=== PATIENT | female | born 2000 | race Caucasian/White ===

== ENCOUNTER 2023-09-12 11:37 | Emergency (ER) | payer OTHER ==
[2023-09-12 12:02] LABS: BILIRUBIN,URINE NEGATIVE (NEGATIVE); CLARITY,URINE CLEAR (CLEAR); GLUCOSE, URINE (UA) NEGATIVE (NEGATIVE); HCG UR QUAL POSITIVE; KETONES,URINE (UA) NEGATIVE (NEGATIVE); LEUKOCYTE ESTERASE, URINE TRACE (NEGATIVE); NITRITE,URINE NEGATIVE (NEGATIVE); OCCULT BLOOD,URINE LARGE (NEGATIVE); PROTEIN,URINE NEGATIVE (NEGATIVE); UROBILINOGEN,URINE 0.2 (NORMAL) E.U./dL (NORMAL)
[2023-09-12 12:07] LABS: BACTERIA,URINE Few /HPF (None Seen); MUCUS,URINE Moderate Strands; RBC,URINE 0-5 /HPF (0-5); SQUAMOUS EPITHELIAL CELL,UR MANY Squamous (<= Few); WBC,URINE 0-3 /HPF (0-5)
[2023-09-12 12:10] LABS: BASOPHILS % (AUTO) 0.2 %; EOSINOPHILS # (AUTO) 0.1 10^3/uL (0.0-0.7); EOSINOPHILS % (AUTO) 1.7 %; HCT - HEMATOCRIT 36.8 % (37.0-47.0); HGB - HEMOGLOBIN 12.2 g/dL (12.0-16.0); LYMPHOCYTES # (AUTO) 1.7 10^3/uL (1.5-3.5); LYMPHOCYTES % (AUTO) 27.7 %; MEAN CORPUSCULAR HEMOGLOBIN 29.9 pg (27.0-31.0); MEAN CORPUSCULAR HGB CONC 33.2 g/dL (32.0-36.0); MEAN CORPUSCULAR VOLUME 90.2 fL (81.0-99.0); MEAN PLATELET VOLUME 8.6 fL (7.9-10.8); MONOCYTES # (AUTO) 0.5 10^3/uL (0.0-1.0); MONOCYTES % (AUTO) 8.7 %; NEUTROPHILS # (AUTO) 3.7 10^3/uL (1.5-6.6); NEUTROPHILS % (AUTO) 61.5 %; PLT - PLATELET COUNT 226 10^3/uL (130-450); RED BLOOD COUNT 4.08 10^6/uL (4.20-5.40); RED CELL DISTRIBUTION WIDTH 12.8 % (12.0-15.0)
[2023-09-12 12:24] LABS: ALBUMIN 4.2 g/dL (3.2-5.5); ALBUMIN/GLOBULIN RATIO 1.8 (1.0-2.2); BILIRUBIN,TOTAL 0.5 mg/dL (0.2-1.0); CALCIUM 8.9 mg/dL (8.5-10.3); CREATININE 0.8 mg/dL (0.6-1.3); POTASSIUM 3.7 mmol/L (3.5-4.5); TOTAL PROTEIN 6.5 g/dL (6.4-8.9)
--- NOTE | 2023-09-12 12:33 | ED Physician Documentation ---
PD HPI FEMALE - Stated complaint Stated Complaint: /ABD PX - Chief complaint Chief Complaint: Abd Pain - History obtained from History obtained from: Patient - History of Present Illness Timing - onset: How many weeks ago (last menses end Jul and had positive preg test end Aug when was slightly late for period. Had some vaginal bleeding for couple of days then improved with some cramping intermittent. Onset of some vaginal bleeding again last evening after intercourse.) Timing - duration: Weeks (1) Timing - details: Waxing and waning Associated symptoms: Pelvic pain, Vaginal bleeding. No: Fever, Vaginal discharge, Dysuria Contributing factors: OB-BIOMEDICAL INSTRUMENT TECHNICIAN History: G, P Similar symptoms before: Has not had sx before Recently seen: Not recently seen Review of Systems Constitutional: denies: Fever, Chills GI: reports: Abdominal Pain (some cramping lower mid abd to left lower pelvis.) : reports: LMP (end Jul (about 6 1/2 weeks ago).). denies: Dysuria, Frequency, Discharge Musculoskeletal: reports: Back pain (some cramping low back pain at times) Neurologic: denies: Near syncope PD PAST MEDICAL HISTORY - Past Medical History Past Medical History: Yes Cardiovascular: None Respiratory: None Neuro: None Endocrine/Autoimmune: None, Type 2 diabetes BIOMEDICAL INSTRUMENT TECHNICIAN: None : None HEENT: None Psych: None Musculoskeletal: None Derm: None - Past Surgical History Past Surgical History: No - Present Medications Home Medications: Ambulatory Orders Medication Instructions Recorded Confirmed Sertraline HCl 100 mg PO DAILY 09/12/23 09/12/23 - Allergies Allergies/Adverse Reactions: Allergies Allergy/AdvReac Type Severity Reaction Status Date / Time No Known Drug Allergies Allergy Verified 09/12/23 11:41 - Social History Does the pt smoke?: No Smoking Status: Never smoker Does the pt drink ETOH?: No Does the pt have substance abuse?: No - Immunizations Immunizations are current?: Yes - POLST Patient has POLST: No PD ED PE NORMAL - Vitals Vital signs reviewed: Yes - General General: Alert and oriented X 3, Well developed/nourished - Cardiac Cardiac: RRR, No murmur - Female Female : Deferred - Derm Derm: Normal color, Warm and dry Results - Vitals Vitals: Vital Signs - 24 hr 09/12/23 09/12/23 09/12/23 11:41 13:43 15:12 Temperature 36.8 C Heart Rate 82 64 71 Respiratory 16 16 16 Rate Blood Pressure 149/80 H 120/75 113/74 O2 Saturation 100 100 100 09/12/23 15:14 Temperature 36.8 C Heart Rate 68 Respiratory 16 Rate Blood Pressure 113/74 O2 Saturation 98 Oxygen O2 Source Room air - Labs Labs: Laboratory Tests 09/12/23 09/12/23 09/12/23 11:58 12:07 12:07 WBC 6.0 RBC 4.08 L Hgb 12.2 Hct 36.8 L MCV 90.2 MCH 29.9 MCHC 33.2 RDW 12.8 Plt Count 226 MPV 8.6 Neut # (Auto) 3.7 Lymph # (Auto) 1.7 [place] # (Auto) 0.5 Eos # (Auto) 0.1 Baso # (Auto) 0.0 Absolute Nucleated RBC 0.00 Nucleated RBC % 0.0 Sodium 137 Potassium 3.7 Chloride 108 Carbon Dioxide 25 Anion Gap 4.0 L BUN 16 Creatinine 0.8 Estimated GFR (MDRD) 91 Glucose 91 Calcium 8.9 Total Bilirubin 0.5 AST 11 ALT 9 L Alkaline Phosphatase 36 L Total Protein 6.5 Albumin 4.2 Globulin 2.3 Albumin/Globulin Ratio 1.8 Lipase 12 Beta HCG, Quant Urine Color YELLOW Urine Clarity CLEAR Urine pH 6.0 Ur Specific [place] >=1.030 H Urine Protein NEGATIVE Urine Glucose (UA) NEGATIVE Urine Ketones NEGATIVE Urine Occult Blood LARGE H Urine Nitrite NEGATIVE Urine Bilirubin NEGATIVE Urine Urobilinogen 0.2 (NORMAL) Ur Leukocyte Esterase TRACE H Urine RBC 0-5 Urine WBC 0-3 Ur Squamous Epith Cells MANY Squamous H Urine Bacteria Few Urine Mucus Moderate Strands Ur Microscopic Review INDICATED Urine Culture Comments NOT INDICATED Urine HCG, Qual POSITIVE Blood Type 09/12/23 09/12/23 12:07 12:07 WBC RBC Hgb Hct MCV MCH MCHC RDW Plt Count MPV Neut # (Auto) Lymph # (Auto) [place] # (Auto) Eos # (Auto) Baso # (Auto) Absolute Nucleated RBC Nucleated RBC % Sodium Potassium Chloride Carbon Dioxide Anion Gap BUN Creatinine Estimated GFR (MDRD) Glucose Calcium Total Bilirubin AST ALT Alkaline Phosphatase Total Protein Albumin Globulin Albumin/Globulin Ratio Lipase Beta HCG, Quant 1816.9 Urine Color Urine Clarity Urine pH Ur Specific [place] Urine Protein Urine Glucose (UA) Urine Ketones Urine Occult Blood Urine Nitrite Urine Bilirubin Urine Urobilinogen Ur Leukocyte Esterase Urine RBC Urine WBC Ur Squamous Epith Cells Urine Bacteria Urine Mucus Ur Microscopic Review Urine Culture Comments Urine HCG, Qual Blood Type AB NEGATIVE - Rads (name of study) OB US Relevant Findings:: Prelim report reviewed (no visualized IUP; differential includes early , missed miscarriage, or nonvisualized ectopic. Ovaries appear normal and no pelvic free fluid. ), Other (US tech) PD Medical Decision Making - ED course Complexity details: reviewed results, considered differential (early with some left pelvic pain and vaginal bleeding. Consider early with bleeding, Miscarriage, extopic. ), d/w patient, d/w sediment remediation consultant (Dr. Mccain, federal mediation commissioner [employer] MOLDER, who will have office follow up with pt to set appt for lab/exam. ) Reviewed Lab Results: Normal Hgb and WBC. Has positive HCG test on UA. Quant HCG 1816. Blood type AB negative, so if does determine to be miscarriage, will need to consider Rhogam. Will need repeat HCG quant in 3 days to see if rising or falling. If rising, then repeat US at about a week or sooner eval for concern of ectopic. If falling HCG, could be c/w miscarriage. Departure - Departure Disposition: 01 Home, Self Care Clinical Impression: Vaginal bleeding affecting early Condition: Stable Record reviewed to determine appropriate education?: Yes Instructions: ED Miscarriage Poss Follow-Up: Echo Mccain MD [Provider Admit Priv/Credential] - [facility] [Provider Group] Comments: Your ultrasound did not show an obvious in the uterus and no obvious abnormalities in the ovaries or pelvis. Your quantitative hCG level today was 1819. This does not really give us enough specific information to know whether there was a miscarriage and the number is still falling or whether there is a continued that was not visible on ultrasound. You will want to have a repeat blood test in about 3 days to see if the quantitative hCG is going up or down and that will give better information. If it is rising, then further investigation with repeat out such sound in the near future to establish the site of the . If the number is falling appropriately then likely was a miscarriage completed. I did talk with our wood coater on-call and they can follow-up with you. [facility] and see if they are able to just order the repeat blood test in several days to better assess. Meanwhile Tylenol or ibuprofen if needed for some pains or cramps. Return to the ER if you have significant increase in pain, fevers, vaginal discharge or significant bleeding or other concerns. Forms: PCP List Discharge Date/Time: 09/12/23 15:14
[2023-09-12 15:18] VITALS: BP 113/74; O2SAT 98
--- NOTE | 2023-09-12 16:12 | Ultrasound Report ---
PROCEDURE: OB 1st Trimester w/TV INDICATIONS: vag bleeding; EGA 6 wks OUTSIDE/PRIOR DATING DATA: Last menstrual period (LMP): 07/31/2023. TECHNIQUE: Real-time scanning was performed of the fetus and maternal pelvic organs, with image documentation. Endovaginal scanning was also performed to better visualize the fetus and maternal ovaries. COMPARISON: None. FINDINGS: Normal uterine size and echotexture. Endometrial thickness 4 mm it. No evidence of intrauterine pregn genny. Small nabothian cyst on the cervix measures 0.5 x 0.3 cm. Both ovaries also appropriate in size, echotexture and vascularity. No adnexal mass lesion. Left ovar efraín corpus luteum cyst measures 1.9 x 1.4 cm. IMPRESSION: No evidence of intrauterine . Differential considerations include normal early , mi ssed and nonvisualized ectopic Reviewed by: Bharat Baptiste MD on 09/12/2023 3:11 PM [place] Approved by: Bharat Baptiste MD on 09/12/2023 3:11 PM [place] Station ID: [id number]
== END 2023-09-12 15:14 | disposition home or self-care (01) ==
LOC: ED 11:37
DX: O20.9 Hemorrhage in early pregnancy, unspecified (principal); Z3A.00 Weeks of gestation of pregnancy not specified; E11.9 Type 2 diabetes mellitus without complications
CPT/HCPCS: 36415; 80053; 81001; 81003; 81025; 83690; 84702; 85025; 86900; 86901; 87086; 99284

== ENCOUNTER 2023-09-16 08:01 | Day surgery (SDC) | payer OTHER ==
[2023-09-16 08:29] LABS: BASOPHILS % (AUTO) 0.2 %; EOSINOPHILS # (AUTO) 0.1 10^3/uL (0.0-0.7); EOSINOPHILS % (AUTO) 1.7 %; HCT - HEMATOCRIT 37.4 % (37.0-47.0); HGB - HEMOGLOBIN 12.5 g/dL (12.0-16.0); LYMPHOCYTES # (AUTO) 1.5 10^3/uL (1.5-3.5); LYMPHOCYTES % (AUTO) 22.9 %; MEAN CORPUSCULAR HEMOGLOBIN 30.3 pg (27.0-31.0); MEAN CORPUSCULAR HGB CONC 33.4 g/dL (32.0-36.0); MEAN CORPUSCULAR VOLUME 90.8 fL (81.0-99.0); MEAN PLATELET VOLUME 8.8 fL (7.9-10.8); MONOCYTES # (AUTO) 0.6 10^3/uL (0.0-1.0); MONOCYTES % (AUTO) 8.9 %; NEUTROPHILS # (AUTO) 4.3 10^3/uL (1.5-6.6); NEUTROPHILS % (AUTO) 66.1 %; PLT - PLATELET COUNT 215 10^3/uL (130-450); RED BLOOD COUNT 4.12 10^6/uL (4.20-5.40); RED CELL DISTRIBUTION WIDTH 12.7 % (12.0-15.0); WHITE BLOOD COUNT 6.4 x10^3/uL (4.8-10.8)
--- NOTE | 2023-09-16 08:44 | ED Physician Documentation ---
PD HPI FEMALE - Stated complaint Stated Complaint: ABD PX,ROA - Chief complaint Chief Complaint: Abd Pain - History obtained from History obtained from: Patient - History of Present Illness Timing - onset: How many weeks ago (1) Timing - duration: Weeks (1) Timing - details: Gradual onset (has had lower abd cramping, more to the left, for a week. Positive preg test with quant 1800 done 4 days ago. Was to get repeat quant HCG in 3 days. Here for tests today as not heard from LOCKER ROOM MANAGER office. Had increased pain overnight, now whole left side and into back.) Associated symptoms: Back pain, Pelvic pain, Vaginal bleeding. No: Fever, Vaginal discharge, Genital sore/lesion, Dysuria OB-LOCKER ROOM MANAGER History: G (2), P (1) Recently seen: Emergency Dept (4 days ago) Review of Systems Constitutional: denies: Fever, Chills Nose: denies: Rhinorrhea / runny nose, Congestion Throat: denies: Sore throat Respiratory: denies: Cough : denies: Dysuria Neurologic: denies: Near syncope, Syncope PD PAST MEDICAL HISTORY - Past Medical History Past Medical History: No Cardiovascular: None Respiratory: None Neuro: None Endocrine/Autoimmune: None, Type 2 diabetes LOCKER ROOM MANAGER: None : None HEENT: None Psych: None Musculoskeletal: None Derm: None - Past Surgical History Past Surgical History: No - Present Medications Home Medications: Ambulatory Orders Medication Instructions Recorded Confirmed Sertraline HCl 100 mg PO DAILY 09/12/23 09/16/23 Ibuprofen [Motrin] 600 mg PO Q6H PRN #30 tab 09/16/23 oxyCODONE [Roxicodone] 5 mg PO Q4H PRN #10 tablet 09/16/23 - Allergies Allergies/Adverse Reactions: Allergies Allergy/AdvReac Type Severity Reaction Status Date / Time No Known Drug Allergies Allergy Verified 09/16/23 08:36 - Social History Does the pt smoke?: No Smoking Status: Never smoker Does the pt drink ETOH?: No Does the pt have substance abuse?: No - Immunizations Immunizations are current?: Yes - POLST Patient has POLST: No PD ED PE NORMAL - Vitals Vital signs reviewed: Yes - General General: Alert and oriented X 3, No acute distress (appears only mildly uncomfortable.), Well developed/nourished Results - Vitals Vitals: Vital Signs - 24 hr 02/15/24 02/15/24 02/15/24 08:31 11:21 13:52 Temperature 36.9 C 36.3 C L Heart Rate 79 75 88 Respiratory 15 16 17 Rate Blood Pressure 108/69 125/89 H 142/92 H O2 Saturation 100 100 100 09/16/23 09/16/23 09/16/23 13:57 14:03 14:04 Temperature 36.3 C L 36.3 C L 36.3 C L Heart Rate 74 68 75 Respiratory 12 10 L 12 Rate Blood Pressure 141/93 H 136/86 H 130/80 O2 Saturation 100 100 100 09/16/23 09/16/23 09/16/23 14:09 14:15 14:19 Temperature 36.5 C 37.3 C 36.7 C Heart Rate 73 73 63 Respiratory 11 L 15 18 Rate Blood Pressure 135/70 H 130/72 131/80 H O2 Saturation 100 100 100 09/16/23 09/16/23 09/16/23 14:25 14:30 14:35 Temperature 36.9 C 36.9 C Heart Rate 66 70 61 Respiratory 10 L 15 17 Rate Blood Pressure 130/61 129/79 133/76 H O2 Saturation 100 100 100 09/16/23 09/16/23 09/16/23 14:40 14:41 14:50 Temperature 37.3 C 37.3 C 36.0 C L Heart Rate 63 63 67 Respiratory 19 19 14 Rate Blood Pressure 122/83 H 122/83 H 123/67 O2 Saturation 100 100 100 09/16/23 09/16/23 15:00 15:50 Temperature 36.1 C L 36.3 C L Heart Rate 65 74 Respiratory 14 14 Rate Blood Pressure 127/76 121/75 O2 Saturation 98 100 Oxygen O2 Source Room air - Labs Labs: Laboratory Tests 09/16/23 09/16/23 08:21 08:21 WBC 6.4 RBC 4.12 L Hgb 12.5 Hct 37.4 MCV 90.8 MCH 30.3 MCHC 33.4 RDW 12.7 Plt Count 215 MPV 8.8 Neut # (Auto) 4.3 Lymph # (Auto) 1.5 [place] # (Auto) 0.6 Eos # (Auto) 0.1 Baso # (Auto) 0.0 Absolute Nucleated RBC 0.00 Nucleated RBC % 0.0 Beta HCG, Quant 2194.4 - Rads (name of study) pelvic US Relevant Findings:: Prelim report reviewed, EMP independent interpretation of test, Other (urgent report from US Tech: 2.5-3 cm mass adjacent to left ovary with some vascularity and pelvic free fluid. No IUP. ) PD Medical Decision Making - ED course Complexity details: reviewed results (the quant HCG is higher than 3 days ago, now 2100 from 1800. Pelvic US ordered with prompt to US to prioritize this study. ), re-evaluated patient (the patient remained stable with good BP and normal heart rate throughout the ER duration. Stable to the OR. ), considered differential (increased LLQ pelvic pain with known positive HCG and US 4 days ago showing no visible IUP at that time. High concern for ectopic and will recheck quant HCG and US.), d/w senior talent management consultant (The patient returned with increased abd pain starting overnight and has more general peritoneal findings on exam. Awaiting Quant and repeat US but I contacted Dr. Borjas right after exam and said tests pending but high concern for rupturing exam. ) Departure - Departure Disposition: ED Transfer to [facility] Clinical Impression: Ectopic of left ovary, Free fluid in pelvis, Pelvic cramping Condition: Stable Record reviewed to determine appropriate education?: Yes Discharge Date/Time: 09/16/23 12:12
[2023-09-16] MEDS: ACETAMINOPHEN 325 MG TABLET PO STA (09:14)
[2023-09-16] MEDS: IBUPROFEN 600 MG TABLET PO STA (09:15)
--- NOTE | 2023-09-16 11:13 | Ultrasound Report ---
PROCEDURE: OB 1st Trimester w/TV INDICATIONS: increased pain LLQ OUTSIDE/PRIOR DATING DATA: Last menstrual period (LMP): 07/31/2023. First dating scan (date and location): 09/12/2023. TECHNIQUE: Real-time scanning was performed of the fetus and maternal pelvic organs, with image documentation. Endovaginal scanning was also performed to better visualize the fetus and maternal ovaries. COMPARISON: 09/12/2023 FINDINGS: No intrauterine gestation identified. No evidence for a gestational sac. Embryo: An intrauterine gestation is not visualized. Heart rate: No cardiac activity identified.. Maternal organs: Ovaries demonstrate normal vascular waveforms. Left ovary measures 4.2 x 1.9 x 2.4 cm with ovarian volume of 9.8 mL. Right ovary measures 2.2 x 3.1 x 1.5 cm with ovarian volume of 5.2 mL. There is a solid mass noted outside the left ovary measuring 2.5 x 2.1 x 2.1 cm. Minimal adjacent vascularity. Small amount of pelvic free fluid. IMPRESSION: 1. No intrauterine gestation identified. Recommend clinical and laboratory correlation to document ex pected rate of rise for beta-hCG since initial evaluation dated 09/12/2023. 2. No evidence for ovarian torsion. 3. A solid 2.5 cm mass outside the left ovary with minimal adjacent vascularity. Although findings ar e not typical for an ectopic , there is associated pelvic free fluid and reported increasing left-sided lower abdominal pain. Recommend continued clinical and laboratory correlation. Short inte rval follow-up imaging as needed. Reviewed by: Terry Becerril MD on 09/16/2023 11:12 AM PST Approved by: Terry Becerril MD on 09/16/2023 11:12 AM PST Station ID: [id number]
[2023-09-16] MEDS: SODIUM CHLORIDE 0.9% 1,000 ML IV STA (11:15)
[2023-09-16] MEDS ORDERED: PROPOFOL 200 MG/20 ML VIAL IVP ONE (11:24)
[2023-09-16] MEDS ORDERED: LIDOCAINE-PF 2% 10 ML AMP SUBQ ONE (11:24)
[2023-09-16] MEDS ORDERED: ROCURONIUM 50 MG/5 ML VIAL ONE (11:24)
[2023-09-16] MEDS ORDERED: fentaNYL 100 MCG/2 ML VIAL ONE ×3 (11:25→14:01)
[2023-09-16] MEDS ORDERED: MIDAZOLAM 2 MG/2 ML VIAL ONE (11:25)
--- NOTE | 2023-09-16 11:26 | HISTORY & PHYSICAL EXAMINATION ---
HPI - Admitted From Admitted from: ED - History Obtained From History obtained from: Patient Exam limitations: No limitations - History of Present Illness Pain/Problem Location Description: Diffuse abdominal tenderness, Ectopic Severity at the worst: reports: Moderate Pain Quality: reports: Sharp HPI Comment/Other: HPI: 22-year-old -0-0-1 with early . She was seen in the ED 4 days ago with early with no IUP or extrauterine . At that time, she had a quantitative hCG of approximately 1800 and has since risen to approximately 2200., She has developed a left sided mass near her ovary with vascularity and pelvic free fluid. All other symptoms reviewed and were negative except per HPI. PMH Depression PSH No prior surgeries SH Denies tobacco, alcohol, drugs Family History Noncontributory Allergies No known drug allergies Medications Sertraline 100 mg nightly Physical exam: General: Alert, oriented, no acute distress Head: Normal cephalic atraumatic Eyes: PERRLA, extraocular motions intact. Respiratory: Normal rate of respiration. No accessory muscle use, normal respiratory effort. Cardiovascular: Regular rate and rhythm Abdomen: Soft, diffuse abdominal tenderness, mild to moderate, worse with palpation. Extremities: Normal range of motion Neuro: Oriented x3. Normal movements Psych: Appropriate mood and affect. Normal judgment and insight Plan 22-year-old -0-0-1 with early ectopic . 1. Ectopic -Has developed a left-sided mass, concerning for ectopic . Not present on exam 4 days ago. Discussed the risk, benefits, alternatives of laparoscopic removal of ectopic including possible removal of her tube which we explained was the most likely location of the ectopic , although it may be in other places such as attached to the ovary. This can result in bleeding and the patient was counseled and excepted a blood transfusion if necessary. She was typed and screened for the procedure. Discussed low risk of infection, risk to other organs, larger surgeries. -Did discuss if remove the tube, we will perform a contralateral chromopertubation to ensure patency if she desires future fertility and patient agrees. -Patient's partner is on his way and as patient's vital signs are stable, hemoglobin and hematocrit are stable, can wait for his arrival prior to going back for surgery. -Patient will likely be able to discharge this afternoon or evening, but overnight stay is a possibility for now she does after surgery. I expect patient to be discharged or transferred within 96 hours. PMH/PSH - Past Medical History Cardiovascular: positive: None Respiratory: positive: None Neuro: positive: None Endocrine/Autoimmune: positive: None, Type 2 diabetes [employer]: positive: None : positive: None HEENT: positive: None Psych: positive: None Musculoskeletal: positive: None Derm: positive: None MRSA Hx?: No Social & Family Hx - Social History Does the pt smoke?: No Smoking Status: Never smoker Does the pt drink ETOH?: No Does the pt have substance abuse?: No - POLST Patient has POLST: No Meds/Allgy - Home Medications Home Medications: Ambulatory Orders Medication Instructions Recorded Confirmed Sertraline HCl 100 mg PO DAILY 09/12/23 09/16/23 - Allergies Allergies/Adverse Reactions: Allergies Allergy/AdvReac Type Severity Reaction Status Date / Time No Known Drug Allergies Allergy Verified 09/16/23 08:36 Exam - Vital Signs Vital Signs: Vital Signs x48h Temp Pulse Resp BP Pulse Ox 09/16/23 11:21 75 16 125/89 H 100 09/16/23 08:31 98.4 F 79 15 108/69 100 Results - Lab Results Fish Bones: 09/16/23 08:21 Other Lab Results: Lab Results x24hrs 09/16/23 09/16/23 Range/Units 08:21 08:21 WBC 6.4 (4.8-10.8) x10^3/uL RBC 4.12 L (4.20-5.40) 10^6/uL Hgb 12.5 (12.0-16.0) g/dL Hct 37.4 (37.0-47.0) % MCV 90.8 (81.0-99.0) fL MCH 30.3 (27.0-31.0) pg MCHC 33.4 (32.0-36.0) g/dL RDW 12.7 (12.0-15.0) % Plt Count 215 (130-450) 10^3/uL MPV 8.8 (7.9-10.8) fL Neut # (Auto) 4.3 (1.5-6.6) 10^3/uL Lymph # (Auto) 1.5 (1.5-3.5) 10^3/uL [place] # (Auto) 0.6 (0.0-1.0) 10^3/uL Eos # (Auto) 0.1 (0.0-0.7) 10^3/uL Baso # (Auto) 0.0 (0.0-0.1) 10^3/uL Absolute Nucleated RBC 0.00 x10^3/uL Nucleated RBC % 0.0 /100WBC Beta HCG, Quant 2194.4 mIU/mL
[2023-09-16] MEDS ORDERED: LIDOCAINE 1%-EPI 1:100000 20 ML MDV ONE (11:32)
[2023-09-16] MEDS ORDERED: METHYLENE BLUE 0.5% 50 MG/10 ML AMPULE ONE (11:32)
[2023-09-16] MEDS ORDERED: BUPIVACAINE 0.25% PF 10 ML VIAL ONE (11:33)
--- NOTE | 2023-09-16 11:48 | ANESTHESIA ---
Pre-Anesthesia VS, & Labs - Diagnosis ruptured left ectopic - Procedure laparascopic removal of ectopic Vital Signs: Temp Pulse Resp BP Pulse Ox O2 Flow Rate 36.9 C 75 16 125/89 H 100 09/16/23 08:31 09/16/23 11:21 09/16/23 11:21 09/16/23 11:21 09/16/23 11:21 Height: 5 ft 7 in Weight (kg): 68.039 kg Body Mass Index: 23.5 BMI Classification: Normal - NPO Other Last Fluid Intake: 744 Last Food Intake: 744 Burrito - Is Patient ?: Yes (ectopic ) - Lab Results Current Lab Results: Laboratory Tests 09/16/23 08:21: Beta HCG, Quant 2194.4 09/16/23 08:21: WBC 6.4, RBC 4.12 L, Hgb 12.5, Hct 37.4, MCV 90.8, MCH 30.3, MCHC 33.4, RDW 12.7, Plt Count 215, MPV 8.8, Neut # (Auto) 4.3, Lymph # (Auto) 1.5, [place] # (Auto) 0.6, Eos # (Auto) 0.1, Baso # (Auto) 0.0, Absolute Nucleated RBC 0.00, Nucleated RBC % 0.0 Fish Bones: 09/16/23 08:21 Home Medications and Allergies Sertraline HCl 100 mg PO DAILY 09/12/23 Allergies/Adverse Reactions: Allergies Allergy/AdvReac Type Severity Reaction Status Date / Time No Known Drug Allergies Allergy Verified 09/16/23 08:36 Anes History & Medical History - Anesthetic History Anesthesia Complications: reports: No previous complications Family history of Anesthesia Complications: Denies Family history of Malignant Hyperthermia: Denies - Medical History Cardiovascular: reports: None Pulmonary: reports: None Gastrointestinal: reports: GERD (occasional) Urinary: reports: None Neuro: reports: None Musculoskeletal: reports: None Endocrine/Autoimmune: reports: None, Type 2 diabetes Blood Disorders: reports: None Skin: reports: None Smoking Status: Never smoker (vapes) Psychosocial: reports: No issues indicated Exam General: Alert Dental: WNL Mouth Openin Fingerbreadth Neck Mobility: Normal Mallampati classification: II Thyromental Distance: 4-6 cm Respiratory: Lungs clear Cardiovascular: Regular rate Plan Anesthesia Type: General Consent for Procedure(s) Verified and Reviewed: Yes Code Status: Attempt Resuscitation ASA classification: 2-Mild systemic disease Is this case an emergency?: Yes
[2023-09-16] MEDS ORDERED: ePHEDrine 50 MG/ML VIAL IVP PRN (11:51)
[2023-09-16] MEDS ORDERED: ONDANSETRON 4 MG/2 ML VIAL IVP PRN (11:51)
[2023-09-16] MEDS ORDERED: NALOXONE 0.4 MG/ML VIAL IVP PRN (11:51)
[2023-09-16] MEDS ORDERED: METOCLOPRAMIDE 10 MG/2 ML VIAL IVP PRN (11:51)
[2023-09-16] MEDS ORDERED: ATROPINE ABBOJECT 1 MG/10 ML SYRINGE IVP PRN (11:51)
[2023-09-16] MEDS ORDERED: SUCCINYLCHOLINE 200 MG/10 ML VIAL ONE (11:59)
[2023-09-16] MEDS ORDERED: LACTATED RINGERS 1,000 ML IV SCH (12:00)
[2023-09-16] MEDS ORDERED: RHO(D) IMMUNE GLOBULIN 300 MCG SYRINGE IVP ONE (12:01)
[2023-09-16] MEDS ORDERED: DEXAMETHASONE 4 MG/ML VIAL ONE (12:01)
[2023-09-16] MEDS ORDERED: ONDANSETRON 4 MG/2 ML VIAL ONE (12:01)
[2023-09-16] MEDS ORDERED: SUGAMMADEX 200 MG/2 ML VIAL IVP ONE (12:01)
[2023-09-16] MEDS ORDERED: GLYCOPYRROLATE 1 MG/5 ML VIAL ONE (12:27)
[2023-09-16] MEDS ORDERED: PHENYLEPHRINE HCL 0.5 MG/5 ML AMPULE ONE (12:40)
[2023-09-16] MEDS: BUPIVACAINE 0.25% PF 10 ML VIAL SUBQ ONE ×2 (12:45)
[2023-09-16] MEDS: LIDOCAINE 1% 50 ML MDV SUBQ ONE ×2 (12:46)
[2023-09-16] MEDS: METHYLENE BLUE 0.5% 50 MG/10 ML AMPULE IR ONE (12:47)
[2023-09-16] MEDS ORDERED: HYDROcod/ACETAM 10 MG/325 MG TABLET PO PRN (13:40)
--- NOTE | 2023-09-16 13:47 | OPERATIVE REPORT ---
Operative Report - General Procedure Date: 09/16/23 Planned Procedure: Laparoscopic removal of ectopic and chromopertubation Pre-Op Diagnosis: Ectopic Procedure Performed: Laparoscopic left salpingectomy, removal ectopic , chromopertubation Post Op Diagnosis: Ectopic - Procedure Note Primary Surgeon: Kwabena Borjas MD Secondary Surgeon: ALISSA Reyes Anesthesia Provider: Francisco Javier Curtis CRNA Anesthesia Technique: General ET tube Pathology: Left fallopian tube, ectopic IV Fluids (mL): 11,001 Estimated Blood Loss (mL): 100 Urine Output (mL): 0 (Bladder drained prior to procedure) Indications: Normal-appearing liver, gallbladder, stomach. Left fallopian tube with bleeding and hemorrhage. Blood clot versus ectopic in the low pelvis. Normal- appearing uterus, right fallopian tube. Normal-appearing ovaries. Complications: None - Other Other Information/Narrative: Prior to procedure, consent was obtained discussing the risk, benefits, alternatives of the procedure. Patient was taken to the OR and placed in the dorsal lithotomy position using Yellofin stirrups after adequate anesthesia was obtained. Timeout was performed. Patient was prepped and draped in the usual fashion. A bivalve speculum was used to visualize the cervix and a uterine manipulator was placed. 2 mL of local anesthesia was used below the umbilicus. An 11 blade scalpel was used to incise the skin. Direct visual entry was used to place the infr aumbilical trocar. Upon entering the peritoneal cavity, low flow was used to ensure appropriate positioning. Upon visualization of the abdominal cavity, high flow was then initiated. There were air bubbles in the omentum that implied omental insufflation, but no active bleeding. No bowel injury was noted. 2 additional trocars was placed under visualization in a similar fashion in the right and left lower quadrants. The uterus was elevated and bleeding and a large clot was noted in the pelvis, blood was suctioned out and the thicker portion was what appeared to be a possible gestational sac versus hardened clot that was not break apart or suction. Switching to a 11 mm port with an Endo Catch bag, the specimen was removed. At that point, the left tube was bleeding and decision made to proceed with left salpingectomy. The fimbria were grasped, elevated from the ovary and coagulated and cut with the ligasure device. This was sequentially done along the mesosalpinx to the area of the cornua where the tube was coagulated and cut and transected and removed from the belly. We then proceeded with chromopertubation. Methylene blue was diluted and passed through the uterine manipulator. The right tube appeared to be patent. We did call general surgeon to come evaluate and agreed that there were no obvious wounds to the bowel. The abdomen was reviewed for hemostasis, and a healthy-appearing liver was noted. The 11mm port was removed and the fascia was closed with an 0-vicryl suture. The remaining trocars were then removed, and abdomen was evacuated of gas. The trocar sites were then closed with a 4-0 Monocryl in a sub-cuticular fashion and covered with Dermabond. Uterine manipulator was removed and cervix was hemostatic. Sponge and needle counts were correct. Patient was taken to the PACU in stable condition. I appreciate the assistance of ALISSA Mayen during this procedure, and the assistance in retraction, visualization, dissection, and overall assistance during the case were instrumental to the patient's wellbeing.
[2023-09-16] MEDS: LACTATED RINGERS 200 ML IV ONE ×2 (13:52→14:11)
[2023-09-16] MEDS: fentaNYL 100 MCG/2 ML VIAL IVP PRN (14:03)
[2023-09-16] MEDS: LACTATED RINGERS 1,000 ML IV ONE ×2 (14:11→14:41)
[2023-09-16] MEDS ORDERED: HYDROmorphone 0.5 MG/0.5 ML SYRINGE ONE (14:21)
[2023-09-16] MEDS: HYDROmorphone 0.5 MG/0.5 ML SYRINGE IVP PRN (14:23)
[2023-09-16] MEDS ORDERED: HYDROcod/ACETAM 5/325 MG TABLET ONE ×2 (15:27→15:42)
[2023-09-16] MEDS: HYDROcod/ACETAM 5/325 MG TABLET PO PRN (15:44)
[2023-09-16 15:53] VITALS: BP 121/75; O2SAT 100
--- NOTE | 2023-09-16 16:41 | ANESTHESIA POST OP EVALUATION ---
Anesthesia Post Eval - Post Anesthesia Eval Vitals: Last Vital Signs Temp 36.3 C L 09/16/23 15:50 Pulse 74 09/16/23 15:50 Resp 14 09/16/23 15:50 BP 121/75 09/16/23 15:50 Pulse Ox 100 09/16/23 15:50 O2 Flow Rate CV Function Including HR & BP: Stable Pain Control: Satisfactory Nausea & Vomiting: Negative Mental Status: Baseline Respiratory Status: Airway Patent Hydration Status: Satisfactory Anesthesia Complications: None
== END 2023-09-16 11:21 | disposition home or self-care (01) ==
LOC: ED 08:01 → SDS 11:20
PROVIDERS: ATTEND Obstetrics & Gynecology
PROC: 0UT64ZZ Resection of Left Fallopian Tube, Percutaneous Endoscopic Approach (ICD-10-PCS; 2023-09-16)
PROC: 10T24ZZ Resection of Products of Conception, Ectopic, Percutaneous Endoscopic Approach (ICD-10-PCS; principal; 2023-09-16 11:45)
DX: O00.102 Left tubal pregnancy without intrauterine pregnancy (principal)
CPT/HCPCS: 36415; 59151; 76801; 76817; 84702; 85025; 99284; 99285; A9270; J0330; J1170; J2372; J7120

== ENCOUNTER 2023-09-21 08:18 | Outpatient (CLI) | payer OTHER ==
[2023-09-21 08:32] LABS: BILIRUBIN,URINE NEGATIVE (NEGATIVE); GLUCOSE, URINE (UA) NEGATIVE (NEGATIVE); KETONES,URINE (UA) NEGATIVE (NEGATIVE); LEUKOCYTE ESTERASE, URINE NEGATIVE (NEGATIVE); NITRITE,URINE NEGATIVE (NEGATIVE); OCCULT BLOOD,URINE TRACE-INTA (NEGATIVE); PROTEIN,URINE NEGATIVE (NEGATIVE); UROBILINOGEN,URINE 0.2 (NORMAL) E.U./dL (NORMAL)
[2023-09-21 08:32] LABS: BASOPHILS % (AUTO) 0.3 %; EOSINOPHILS # (AUTO) 0.2 10^3/uL (0.0-0.7); EOSINOPHILS % (AUTO) 2.5 %; HCT - HEMATOCRIT 36.8 % (37.0-47.0); HGB - HEMOGLOBIN 12.3 g/dL (12.0-16.0); LYMPHOCYTES % (AUTO) 29.1 %; MEAN CORPUSCULAR HEMOGLOBIN 30.1 pg (27.0-31.0); MEAN CORPUSCULAR HGB CONC 33.4 g/dL (32.0-36.0); MEAN CORPUSCULAR VOLUME 90.2 fL (81.0-99.0); MEAN PLATELET VOLUME 8.8 fL (7.9-10.8); MONOCYTES # (AUTO) 0.5 10^3/uL (0.0-1.0); MONOCYTES % (AUTO) 7.5 %; NEUTROPHILS # (AUTO) 4.1 10^3/uL (1.5-6.6); NEUTROPHILS % (AUTO) 60.5 %; PLT - PLATELET COUNT 224 10^3/uL (130-450); RED BLOOD COUNT 4.08 10^6/uL (4.20-5.40); RED CELL DISTRIBUTION WIDTH 12.6 % (12.0-15.0); WHITE BLOOD COUNT 6.7 x10^3/uL (4.8-10.8)
[2023-09-21 08:39] LABS: BACTERIA,URINE Few /HPF (None Seen); CLARITY,URINE HAZY (CLEAR); RBC,URINE 0-5 /HPF (0-5); SQUAMOUS EPITHELIAL CELL,UR MOD Squamous (<= Few); WBC,URINE 0-3 /HPF (0-5)
== END 2023-09-21 08:19 | disposition home or self-care (01) ==
LOC: LAB 08:18
PROVIDERS: ATTEND Obstetrics & Gynecology
DX: R10.9 Unspecified abdominal pain (principal)
CPT/HCPCS: 36415; 81001; 85025; 87086

== ENCOUNTER 2024-01-28 12:48 | Emergency (ER) | payer OTHER ==
[2024-01-28 13:12] VITALS: O2SAT 99
--- NOTE | 2024-01-28 13:55 | ED Physician Documentation ---
PD HPI LOWER EXT INJURY - Stated complaint Stated Complaint: LT KNEE INJ - Chief complaint Chief Complaint: Trauma Ext - Additional information Additional information: 23-year-old female with no known pertinent past medical history presents e mergency department for left knee pain. Patient says that she was playing kickball at the [employer] and someone fell into her left knee she says she felt a popping sensation over the patellar region and felt like she was having a hard time walking in. She was brought in via wheelchair and has not taken anything for the pain yet thus far. She did not fall or hit her head. There is mild swelling to the left knee. PD PAST MEDICAL HISTORY - Past Medical History Cardiovascular: None Respiratory: None Neuro: None Endocrine/Autoimmune: None, Type 2 diabetes GI: GERD HOSPITAL NURSE: None : None HEENT: None Psych: None Musculoskeletal: None Derm: None - Past Surgical History Past Surgical History: No - Present Medications Home Medications: Ambulatory Orders Medication Instructions Recorded Confirmed Sertraline HCl 100 mg PO DAILY 09/12/23 09/16/23 Ibuprofen [Motrin] 600 mg PO Q6H PRN #30 tab 09/16/23 oxyCODONE [Roxicodone] 5 mg PO Q4H PRN #10 tablet 09/16/23 - Allergies Allergies/Adverse Reactions: Allergies Allergy/AdvReac Type Severity Reaction Status Date / Time No Known Drug Allergies Allergy Verified 01/28/24 12:56 - Social History Does the pt smoke?: No Smoking Status: Never smoker Does the pt drink ETOH?: No Does the pt have substance abuse?: No - Immunizations Immunizations are current?: Yes - POLST Patient has POLST: No PD ED PE NORMAL - Vitals Vital signs reviewed: Yes - General General: Alert and oriented X 3, No acute distress, Well developed/nourished - Derm Derm: Normal color, Warm and dry, No rash, Other (No ecchymosis no bruising) - Extremities Extremities: Other (Left knee: No valgus or varus laxity, medial lateral joint space tenderness with palpation, tenderness with flexion extension of the left knee. No weakness negative anterior drawer test mild swelling to the patellar region.) Results - Vitals Vitals: Vital Signs - 24 hr 01/28/24 01/28/24 12:53 14:59 Temperature 36.7 C Heart Rate 90 76 Respiratory 16 18 Rate Blood Pressure 125/89 H 130/76 O2 Saturation 99 99 Oxygen O2 Source Room air - Rads (name of study) Left knee x-rays Relevant Findings:: Final report received, EMP independent interpretation of test, Other (No displaced fractures, moderate joint effusion.) PD Medical Decision Making - ED course ED course: 23-year-old female presents emergency department for left knee pain after kickball injury.. X-rays are complete for further evaluation shows moderate joint effusion but no displaced fractures or other bony abnormalities or findings. An Flash wrap was placed over patient's left knee as there was no laxity today that she needed a knee immobilizer. Patient was also given crutches and told to follow-up with Ortho outpatient for further evaluation of possible ligament damage. Return precautions given Tylenol given here in the emergency department all questions answered patient is safe for discharge at this time. Departure - Departure Disposition: 01 Home, Self Care Clinical Impression: Effusion, left knee, Left knee injury Instructions: ED Sprain Knee Follow-Up: [facility] [Provider Group] Comments: Thank you for trusting us with your care. We have completed x-rays of your left knee and we are not seeing any acute abnormalities at this point in time. As we discussed the x-rays do not show for any soft tissue damage and so I think that you benefit from following up with an Ortho doctor for further evaluation of your left knee pain. We are sending you home with crutches as well as an Flash wrap you can take 1000 mg of Tylenol every 8 hours and 600 mg of ibuprofen every 6 hours for pain and discomfort apply ice 20 minutes on 1 hour off it is okay to put some weight on this left knee. Please come back in if you are noticing any worsening symptoms. Forms: PCP List Discharge Date/Time: 01/28/24 14:59
--- NOTE | 2024-01-28 14:05 | XRAY Report ---
PROCEDURE: Knee 4+V LT INDICATIONS: Trauma TECHNIQUE: 4 views of the knee(s) were acquired. COMPARISON: None. FINDINGS: Bones: No fractures or dislocations. No suspicious bony lesions. Soft tissues: Moderate knee joint effusion. No suspicious soft tissue calcifications or masses. IMPRESSION: No displaced fractures. Moderate joint effusion. Internal derangement not excluded. Reviewed by: Checo Johnson MD on 01/28/2024 2:03 PM PDT Approved by: Checo Johnson MD on 01/28/2024 2:03 PM PDT Station ID: [id number]
[2024-01-28] MEDS: ACETAMINOPHEN 500 MG TABLET PO STA (14:36)
[2024-01-28] MEDS: IBUPROFEN 800 MG TABLET PO STA (14:37)
[2024-01-28 15:02] VITALS: BP 130/76
== END 2024-01-28 14:59 | disposition home or self-care (01) ==
LOC: ED 12:48
DX: M25.462 Effusion, left knee (principal); S89.92XA Unspecified injury of left lower leg, initial encounter; W50.0XXA Accidental hit or strike by another person, initial encounter; Y93.6A Activity, physical games generally associated with school recess, summer camp and children; Y92.139 Unspecified place military base as the place of occurrence of the external cause
CPT/HCPCS: 73564; 99283; A9270